=== PATIENT | female | born 1950 | race Caucasian/White ===

== ENCOUNTER 2021-05-28 13:25 | Inpatient (IN) ==
[2021-05-28] MEDS ORDERED: Lactated Ringers 1000 ml BAG 1,000 ML IV ONE ×2 (14:14→16:07)
[2021-05-28 15:13] LABS: ABS Lymphocytes 0.5 10^3/ul (1.0-4.8); ABS Monocytes 0.3 10^3/ul (0-0.8); ABS Neutrophils 5.9 10^3/ul (1.5-7.7); Hematocrit 28 % (35-47); Hemoglobin 9.1 g/dL (12.0-16.0); Mean Corpuscular HGB Conc 33 g/dL (31-36); Mean Corpuscular Hemoglobin 32 pg (27-31); Mean Corpuscular Volume 96 fL (80-97); Mean Platelet Volume 7.2 fL (7.4-10.4); Platelet Count 237 10^3/uL (150-450); Red Blood Count 2.89 10^6 /uL (3.70-4.87); Red Cell Distribution Width 18 % (10-15); White Blood Count 6.7 10^3/uL (3.5-10.8)
[2021-05-28 15:20] LABS: INR 1.22 (0.86-1.15)
[2021-05-28 15:41] LABS: Albumin 3.2 g/dL (3.2-5.2); Albumin/Globulin Ratio 1.2 (1-3); C Reactive Protein 44.72 mg/L (<8.01); Calcium 9.6 mg/dL (8.6-10.3); Globulin 2.7 g/dL (2-4); Magnesium 1.5 mg/dL (1.9-2.7); Potassium 3.1 mmol/L (3.5-5.0); Total Bilirubin 0.7 mg/dL (0.2-1.0); Total Protein 5.9 g/dL (6.4-8.9); eGFR CKD-EPI 78.5 (>60)
[2021-05-28] MEDS ORDERED: Magnesium Sulfate 2 gm BAG 2 GM/50 ML BAG IVPB ONE (15:48)
[2021-05-28] MEDS: KCL 20 MEQ/100 ML IVPREMIX 20 MEQ/100 ML BAG IV SCH ×2 (16:53→18:45)
[2021-05-28] MEDS ORDERED: Iohexol 300 (CONTRAST) 10 ML SDV IV ONE (20:03)
[2021-05-28 21:38] LABS: Urine Appearance Cloudy; Urine Bacteria 1+ (Absent); Urine Bilirubin Negative (Negative); Urine Blood Negative (Negative); Urine Color Yellow; Urine Glucose Negative (Negative); Urine Ketones Trace (Negative); Urine Nitrite Negative (Negative); Urine Protein Negative (Negative); Urine Red Blood Cell 2+(6-10/hpf) (Absent); Urine Specific Gravity 1.034 (1.002-1.030); Urine Squamous Epithelial Cell Present (Absent); Urine Urobilinogen Negative (Negative); Urine White Blood Cell Trace(0-5/hpf) (Absent)
[2021-05-28] MEDS ORDERED: Acetaminophen IV 1 GM/100ML 100 ML IV PRN (21:53)
[2021-05-28 22:12] LABS: Phosphorus 3.6 mg/dL (2.5-5.0)
[2021-05-28] MEDS: Pantoprazole VIAL 40 MG VIAL IV SCH (22:59)
[2021-05-28] MEDS: D5LR 20 MEQ KCL 1000 ml BAG 1,000 ML IV SCH (22:59)
[2021-05-28] MEDS: Enoxaparin 40 MG/0.4 ML SYR SUBCUT SCH (23:00)
[2021-05-29 05:52] LABS: ABS Lymphocytes 0.7 10^3/ul (1.0-4.8); ABS Monocytes 0.4 10^3/ul (0-0.8); ABS Neutrophils 4.7 10^3/ul (1.5-7.7); Eosinophil % 0.2 %; Hematocrit 25 % (35-47); Hemoglobin 8.3 g/dL (12.0-16.0); Lymphocyte % 11.3 %; Mean Corpuscular HGB Conc 33 g/dL (31-36); Mean Corpuscular Hemoglobin 32 pg (27-31); Mean Corpuscular Volume 98 fL (80-97); Mean Platelet Volume 6.8 fL (7.4-10.4); Platelet Count 232 10^3/uL (150-450); Red Blood Count 2.56 10^6 /uL (3.70-4.87); Red Cell Distribution Width 18 % (10-15); White Blood Count 5.7 10^3/uL (3.5-10.8)
[2021-05-29 06:21] LABS: Albumin 2.9 g/dL (3.2-5.2); Albumin/Globulin Ratio 1.1 (1-3); Calcium 8.9 mg/dL (8.6-10.3); Globulin 2.7 g/dL (2-4); Magnesium 1.7 mg/dL (1.9-2.7); Phosphorus 2.3 mg/dL (2.5-5.0); Potassium 3.7 mmol/L (3.5-5.0); Total Bilirubin 0.8 mg/dL (0.2-1.0); Total Protein 5.6 g/dL (6.4-8.9); eGFR CKD-EPI 94.9 (>60)
[2021-05-29] MEDS: Pantoprazole VIAL 40 MG VIAL IV SCH ×2 (08:35→20:56)
[2021-05-29] MEDS: Diphenoxylat/Atrop 2.5-0.025mg TAB PO SCH ×3 (08:35→20:56)
[2021-05-29] MEDS: CMC: Lactase Enzyme (NF) 3,000 UNIT TAB PO SCH ×2 (12:26→19:19)
[2021-05-29] MEDS: D5LR 20 MEQ KCL 1000 ml BAG 1,000 ML IV SCH (12:26)
[2021-05-29 18:28] LABS: Calcium 8.9 mg/dL (8.6-10.3); Magnesium 1.4 mg/dL (1.9-2.7); Potassium 3.6 mmol/L (3.5-5.0); eGFR CKD-EPI 97.9 (>60)
[2021-05-29] MEDS: Enoxaparin 40 MG/0.4 ML SYR SUBCUT SCH (20:57)
[2021-05-29] MEDS ORDERED: Magnesium Sulf 4 GM/100 ML IV 4,000 MG/100 ML BAG IVPB ONE (22:01)
[2021-05-29] MEDS: Magnesium Sulfate 2 GM IV (Premix) IVPB SCH ×2 (22:35→23:37)
[2021-05-30] MEDS: D5LR 20 MEQ KCL 1000 ml BAG 1,000 ML IV SCH (02:00)
[2021-05-30 04:36] LABS: ABS Lymphocytes 0.5 10^3/ul (1.0-4.8); ABS Monocytes 0.3 10^3/ul (0-0.8); Eosinophil % 0.2 %; Hematocrit 25 % (35-47); Hemoglobin 8.2 g/dL (12.0-16.0); Lymphocyte % 7.3 %; Mean Corpuscular HGB Conc 33 g/dL (31-36); Mean Corpuscular Hemoglobin 32 pg (27-31); Mean Corpuscular Volume 97 fL (80-97); Mean Platelet Volume 6.9 fL (7.4-10.4); Platelet Count 225 10^3/uL (150-450); Red Blood Count 2.57 10^6 /uL (3.70-4.87); Red Cell Distribution Width 18 % (10-15); White Blood Count 6.8 10^3/uL (3.5-10.8)
[2021-05-30 05:03] LABS: Calcium 8.8 mg/dL (8.6-10.3); Magnesium 2.4 mg/dL (1.9-2.7); Potassium 3.5 mmol/L (3.5-5.0); eGFR CKD-EPI 96.7 (>60)
[2021-05-30] MEDS: Diphenoxylat/Atrop 2.5-0.025mg TAB PO SCH ×4 (08:15→20:28)
[2021-05-30] MEDS: Pantoprazole VIAL 40 MG VIAL IV SCH ×2 (08:15→20:19)
[2021-05-30] MEDS: CMC: Lactase Enzyme (NF) 3,000 UNIT TAB PO SCH (08:15)
[2021-05-30 10:06] LABS: Ferritin 731.4 ng/mL (11-307)
[2021-05-30] MEDS ORDERED: Alteplase (CATHFLO) 2 MG VIAL ONE (10:58)
[2021-05-30] MEDS: CMCS: Lactase Enzyme (NF) 3,000 UNIT TAB PO PRN (12:35)
[2021-05-30] MEDS ORDERED: TPN 24 HR with Dextrose 40% Water 500 ML, Amino Acid Infusion 10% 1,000 ML, Lipid Emuls... CENT\\PICC SCH (17:00)
[2021-05-30] MEDS: Enoxaparin 40 MG/0.4 ML SYR SUBCUT SCH (20:28)
[2021-05-31] MEDS: Diphenoxylat/Atrop 2.5-0.025mg TAB PO SCH ×4 (02:47→20:31)
[2021-05-31] MEDS ORDERED: Loperamide LIQ 2 MG/15 ML UDC PO ONE ×2 (04:00→04:03)
[2021-05-31 06:29] LABS: Albumin 2.7 g/dL (3.2-5.2); Albumin/Globulin Ratio 1.1 (1-3); Calcium 8.5 mg/dL (8.6-10.3); Globulin 2.5 g/dL (2-4); Magnesium 1.5 mg/dL (1.9-2.7); Phosphorus 1.8 mg/dL (2.5-5.0); Potassium 3.5 mmol/L (3.5-5.0); Total Bilirubin 0.5 mg/dL (0.2-1.0); Total Protein 5.2 g/dL (6.4-8.9); eGFR CKD-EPI 100.5 (>60)
[2021-05-31] MEDS ORDERED: Magnesium Sulf 4 GM/100 ML IV 4,000 MG/100 ML BAG IVPB ONE (08:23)
[2021-05-31] MEDS: CMCS: Lactase Enzyme (NF) 3,000 UNIT TAB PO PRN ×3 (08:25→18:34)
[2021-05-31] MEDS: Pantoprazole VIAL 40 MG VIAL IV SCH ×2 (08:31→20:30)
[2021-05-31] MEDS ORDERED: Potassium Phosphate IV 10 MMOLE in NS 0.9% 250 ml 250 ML IVPB ONE (09:00)
[2021-05-31] MEDS ORDERED: Iohexol 300 (CONTRAST) 10 ML SDV IV ONE (11:50)
[2021-05-31] MEDS: TPN 24 HR with Dextrose 40% Water 500 ML, Amino Acid Infusion 10% 1,000 ML, Lipid Emuls... CENT\\PICC SCH (16:12)
[2021-05-31] MEDS: Enoxaparin 40 MG/0.4 ML SYR SUBCUT SCH (20:30)
[2021-06-01 05:13] LABS: Albumin 2.7 g/dL (3.2-5.2); Albumin/Globulin Ratio 1.1 (1-3); Calcium 8.3 mg/dL (8.6-10.3); Globulin 2.5 g/dL (2-4); Magnesium 2.2 mg/dL (1.9-2.7); Phosphorus 2.3 mg/dL (2.5-5.0); Potassium 3.8 mmol/L (3.5-5.0); Total Bilirubin 0.6 mg/dL (0.2-1.0); Total Protein 5.2 g/dL (6.4-8.9); eGFR CKD-EPI 100.5 (>60)
[2021-06-01] MEDS: Diphenoxylat/Atrop 2.5-0.025mg TAB PO SCH ×3 (07:45→19:58)
[2021-06-01] MEDS: Pantoprazole VIAL 40 MG VIAL IV SCH ×2 (07:45→20:01)
[2021-06-01] MEDS: Ondansetron 4 mg VIAL 2 MG/ML 2 ml VIAL IV PRN ×2 (07:49→14:23)
[2021-06-01] MEDS: TPN 24 HR with Dextrose 40% Water 500 ML, Amino Acid Infusion 10% 1,000 ML, Lipid Emuls... CENT\\PICC SCH (17:11)
[2021-06-01] MEDS: Enoxaparin 40 MG/0.4 ML SYR SUBCUT SCH (20:07)
[2021-06-02 05:42] LABS: ALT 31 U/L (7-52); AST 39 U/L (13-39); Albumin 1.7 g/dL (3.2-5.2); Albumin/Globulin Ratio 1.1 (1-3); Alkaline Phosphatase 210 U/L (35-149); Blood Urea Nitrogen 29 mg/dL (6-24); CO2 Carbon Dioxide 19 mmol/L (22-32); Cholesterol 64 mg/dL; Globulin 1.6 g/dL (2-4); Glucose 82 mg/dL (70-100); Magnesium 1.3 mg/dL (1.9-2.7); Phosphorus 1.6 mg/dL (2.5-5.0); Potassium 2.8 mmol/L (3.5-5.0); Prealbumin 4 mg/dL (18-38); Sodium 144 mmol/L (135-145); Total Protein 3.3 g/dL (6.4-8.9); Triglycerides 41 mg/dL; eGFR CKD-EPI 114.8 (>60)
[2021-06-02 05:54] LABS: Anion Gap 3 mmol/L (2-11); Calcium 5.3 mg/dL (8.6-10.3); Chloride 122 mmol/L (101-111)
[2021-06-02] MEDS ORDERED: Calcium Gluconate 3 GM in NS 0.9% 250 ml 250 ML IV ONE (08:20)
[2021-06-02] MEDS: CMCS: Lactase Enzyme (NF) 3,000 UNIT TAB PO PRN ×2 (09:33→17:54)
[2021-06-02] MEDS: Diphenoxylat/Atrop 2.5-0.025mg TAB PO SCH ×3 (10:34→20:14)
[2021-06-02] MEDS: Pantoprazole VIAL 40 MG VIAL IV SCH ×2 (10:35→20:14)
[2021-06-02 11:43] LABS: Albumin 2.6 g/dL (3.2-5.2); Calcium 8.3 mg/dL (8.6-10.3); Globulin 2.6 g/dL (2-4); Magnesium 1.8 mg/dL (1.9-2.7); Phosphorus 2.4 mg/dL (2.5-5.0); Potassium 4.3 mmol/L (3.5-5.0); Total Bilirubin 0.5 mg/dL (0.2-1.0); Total Protein 5.2 g/dL (6.4-8.9); eGFR CKD-EPI 103.5 (>60)
[2021-06-02] MEDS ORDERED: TPN CENTRAL STANDARD BASE A CENT\\PICC SCH (17:00)
[2021-06-02] MEDS: Enoxaparin 40 MG/0.4 ML SYR SUBCUT SCH (20:14)
[2021-06-03 06:20] LABS: Magnesium 1.7 mg/dL (1.9-2.7)
[2021-06-03 06:26] LABS: Phosphorus 2.3 mg/dL (2.5-5.0); eGFR CKD-EPI 104.6 (>60)
[2021-06-03] MEDS ORDERED: Magnesium Sulfate 2 gm BAG 2 GM/50 ML BAG IVPB ONE (08:10)
[2021-06-03] MEDS: Pantoprazole VIAL 40 MG VIAL IV SCH ×2 (09:26→20:01)
[2021-06-03] MEDS: CMCS: Lactase Enzyme (NF) 3,000 UNIT TAB PO PRN ×2 (09:26→13:20)
[2021-06-03] MEDS: Diphenoxylat/Atrop 2.5-0.025mg TAB PO SCH ×3 (09:32→19:02)
[2021-06-03] MEDS: TPN 24 HR with Dextrose 40% Water 500 ML, Amino Acid Infusion 10% 1,000 ML, Lipid Emuls... TPN SCH (17:12)
[2021-06-03] MEDS: Enoxaparin 40 MG/0.4 ML SYR SUBCUT SCH (20:01)
[2021-06-04 06:16] LABS: Calcium 8.2 mg/dL (8.6-10.3); Magnesium 1.7 mg/dL (1.9-2.7); Phosphorus 2.5 mg/dL (2.5-5.0); Potassium 4.1 mmol/L (3.5-5.0); eGFR CKD-EPI 107.1 (>60)
[2021-06-04] MEDS: Pantoprazole VIAL 40 MG VIAL IV SCH ×2 (09:25→21:09)
[2021-06-04] MEDS: Diphenoxylat/Atrop 2.5-0.025mg TAB PO SCH ×3 (09:25→21:08)
[2021-06-04] MEDS: TPN 24 HR with Dextrose 40% Water 500 ML, Amino Acid Infusion 10% 1,000 ML, Lipid Emuls... TPN SCH (16:27)
[2021-06-04] MEDS: Enoxaparin 40 MG/0.4 ML SYR SUBCUT SCH (21:09)
[2021-06-05 05:34] LABS: Calcium 8.4 mg/dL (8.6-10.3); Magnesium 1.9 mg/dL (1.9-2.7); Potassium 4.3 mmol/L (3.5-5.0); eGFR CKD-EPI 104.1 (>60)
[2021-06-05] MEDS: Diphenoxylat/Atrop 2.5-0.025mg TAB PO SCH ×3 (07:41→21:53)
[2021-06-05] MEDS: Pantoprazole VIAL 40 MG VIAL IV SCH ×2 (07:41→21:49)
[2021-06-05] MEDS ORDERED: oxyCODONE 5 mg/5 ml ORAL.SOLN UDC PO PRN (11:43)
[2021-06-05] MEDS: oxyCODONE 5 mg/5 ml ORAL.SOLN UDC PO PRN ×3 (12:53→22:01)
[2021-06-05] MEDS: TPN 24 HR with Dextrose 40% Water 500 ML, Amino Acid Infusion 10% 1,000 ML, Lipid Emuls... TPN SCH (21:34)
[2021-06-05] MEDS: Ondansetron 4 mg VIAL 2 MG/ML 2 ml VIAL IV PRN (21:49)
[2021-06-05] MEDS: Enoxaparin 40 MG/0.4 ML SYR SUBCUT SCH (21:53)
[2021-06-06] MEDS: Morphine 4 MG/ML VIAL (1 ml) IV PRN ×4 (00:33→21:39)
[2021-06-06] MEDS: Ondansetron 4 mg VIAL 2 MG/ML 2 ml VIAL IV PRN ×2 (03:41→13:32)
[2021-06-06] MEDS: Calcium Carb (TUMS) 500 mg CHEW TAB PO PRN (03:45)
[2021-06-06 06:09] LABS: ABS Lymphocytes 0.3 10^3/ul (1.0-4.8); ABS Monocytes 0.9 10^3/ul (0-0.8); ABS Neutrophils 7.6 10^3/ul (1.5-7.7); Hematocrit 25 % (35-47); Lymphocyte % 3.9 %; Mean Corpuscular HGB Conc 33 g/dL (31-36); Mean Corpuscular Hemoglobin 33 pg (27-31); Mean Corpuscular Volume 101 fL (80-97); Platelet Count 275 10^3/uL (150-450); Red Blood Count 2.43 10^6 /uL (3.70-4.87); Red Cell Distribution Width 19 % (10-15); White Blood Count 8.8 10^3/uL (3.5-10.8)
[2021-06-06 06:35] LABS: Albumin 2.6 g/dL (3.2-5.2); Calcium 8.7 mg/dL (8.6-10.3); Globulin 2.7 g/dL (2-4); Magnesium 2.3 mg/dL (1.9-2.7); Phosphorus 4.2 mg/dL (2.5-5.0); Total Bilirubin 0.5 mg/dL (0.2-1.0); Total Protein 5.3 g/dL (6.4-8.9); eGFR CKD-EPI 79.7 (>60)
[2021-06-06 06:36] LABS: Potassium 5.2 mmol/L (3.5-5.0)
[2021-06-06] MEDS: Pantoprazole VIAL 40 MG VIAL IV SCH ×2 (09:10→21:40)
[2021-06-06] MEDS: Metoclopramide 5 MG/ML VIAL (10 mg) IV SLOW PU PRN ×2 (09:10→18:27)
[2021-06-06] MEDS: oxyCODONE 5 mg/5 ml ORAL.SOLN UDC PO PRN (10:05)
[2021-06-06] MEDS: Diphenoxylat/Atrop 2.5-0.025mg TAB PO SCH ×4 (10:05→21:41)
[2021-06-06] MEDS ORDERED: TPN CENTRAL STANDARD BASE A TPN SCH (17:00)
[2021-06-06] MEDS: Enoxaparin 40 MG/0.4 ML SYR SUBCUT SCH (21:40)
[2021-06-07] MEDS: Morphine 2 MG/ML SYRINGE IV PRN ×3 (06:11→22:45)
[2021-06-07 06:41] LABS: ABS Lymphocytes 0.5 10^3/ul (1.0-4.8); ABS Monocytes 0.8 10^3/ul (0-0.8); ABS Neutrophils 5.9 10^3/ul (1.5-7.7); Eosinophil % 0.1 %; Hematocrit 24 % (35-47); Hemoglobin 8.2 g/dL (12.0-16.0); Lymphocyte % 6.5 %; Mean Corpuscular HGB Conc 34 g/dL (31-36); Mean Corpuscular Hemoglobin 34 pg (27-31); Mean Corpuscular Volume 101 fL (80-97); Mean Platelet Volume 8.1 fL (7.4-10.4); Platelet Count 276 10^3/uL (150-450); Red Cell Distribution Width 19 % (10-15); White Blood Count 7.2 10^3/uL (3.5-10.8)
[2021-06-07 07:03] LABS: Albumin 2.7 g/dL (3.2-5.2); Albumin/Globulin Ratio 0.9 (1-3); Globulin 2.9 g/dL (2-4); Magnesium 2.6 mg/dL (1.9-2.7); Phosphorus 3.8 mg/dL (2.5-5.0); Potassium 4.6 mmol/L (3.5-5.0); Total Bilirubin 0.4 mg/dL (0.2-1.0); Total Protein 5.6 g/dL (6.4-8.9); eGFR CKD-EPI 62.5 (>60)
[2021-06-07] MEDS: Ondansetron 4 mg VIAL 2 MG/ML 2 ml VIAL IV PRN ×2 (08:43→16:55)
[2021-06-07] MEDS: oxyCODONE 5 mg/5 ml ORAL.SOLN UDC PO PRN ×2 (08:43→16:55)
[2021-06-07] MEDS: Pantoprazole VIAL 40 MG VIAL IV SCH ×2 (08:43→19:46)
[2021-06-07] MEDS: Diphenoxylat/Atrop 2.5-0.025mg TAB PO SCH ×3 (11:33→19:25)
[2021-06-07] MEDS ORDERED: TPN 24 HR with Dextrose 40% Water 500 ML, Amino Acid Infusion 10% 1,000 ML, Lipid Emuls... TPN SCH (17:00)
[2021-06-07] MEDS: Enoxaparin 40 MG/0.4 ML SYR SUBCUT SCH (19:46)
[2021-06-07] MEDS: Metoclopramide 5 MG/ML VIAL (10 mg) IV SLOW PU PRN (23:21)
[2021-06-08] MEDS: Morphine 2 MG/ML SYRINGE IV PRN ×3 (03:08→17:22)
[2021-06-08] MEDS: Ondansetron 4 mg VIAL 2 MG/ML 2 ml VIAL IV PRN ×3 (03:08→17:22)
[2021-06-08] MEDS: oxyCODONE 5 mg/5 ml ORAL.SOLN UDC PO PRN ×2 (06:27→19:59)
[2021-06-08 06:40] LABS: ABS Lymphocytes 0.3 10^3/ul (1.0-4.8); ABS Monocytes 0.5 10^3/ul (0-0.8); ABS Neutrophils 3.4 10^3/ul (1.5-7.7); Eosinophil % 0.3 %; Hematocrit 22 % (35-47); Hemoglobin 7.3 g/dL (12.0-16.0); Lymphocyte % 7.8 %; Mean Corpuscular HGB Conc 33 g/dL (31-36); Mean Corpuscular Hemoglobin 34 pg (27-31); Mean Corpuscular Volume 101 fL (80-97); Mean Platelet Volume 8.1 fL (7.4-10.4); Platelet Count 248 10^3/uL (150-450); Red Blood Count 2.16 10^6 /uL (3.70-4.87); Red Cell Distribution Width 19 % (10-15); White Blood Count 4.3 10^3/uL (3.5-10.8)
[2021-06-08 07:05] LABS: Magnesium 2.6 mg/dL (1.9-2.7); Phosphorus 3.4 mg/dL (2.5-5.0); Potassium 4.2 mmol/L (3.5-5.0); eGFR CKD-EPI 71.1 (>60)
[2021-06-08] MEDS: Diphenoxylat/Atrop 2.5-0.025mg TAB PO SCH ×3 (09:35→19:58)
[2021-06-08] MEDS: Pantoprazole VIAL 40 MG VIAL IV SCH ×2 (09:36→20:00)
[2021-06-08] MEDS ORDERED: TPN CENTRAL STANDARD BASE A CENT\\PICC SCH (17:00)
[2021-06-08] MEDS: Enoxaparin 30 MG/0.3 ML SYR SUBCUT SCH (20:00)
[2021-06-09] MEDS: Morphine 2 MG/ML SYRINGE IV PRN ×4 (01:24→22:07)
[2021-06-09] MEDS: Ondansetron 4 mg VIAL 2 MG/ML 2 ml VIAL IV PRN ×4 (01:24→22:08)
[2021-06-09] MEDS: oxyCODONE 5 mg/5 ml ORAL.SOLN UDC PO PRN (06:18)
[2021-06-09 06:53] LABS: ABS Lymphocytes 0.3 10^3/ul (1.0-4.8); ABS Monocytes 0.4 10^3/ul (0-0.8); ABS Neutrophils 3.9 10^3/ul (1.5-7.7); Eosinophil % 0.3 %; Hematocrit 22 % (35-47); Hemoglobin 7.1 g/dL (12.0-16.0); Lymphocyte % 6.5 %; Mean Corpuscular HGB Conc 33 g/dL (31-36); Mean Corpuscular Hemoglobin 33 pg (27-31); Mean Corpuscular Volume 100 fL (80-97); Mean Platelet Volume 7.8 fL (7.4-10.4); Platelet Count 232 10^3/uL (150-450); Red Blood Count 2.17 10^6 /uL (3.70-4.87); Red Cell Distribution Width 19 % (10-15); White Blood Count 4.7 10^3/uL (3.5-10.8)
[2021-06-09 07:39] LABS: Albumin 2.6 g/dL (3.2-5.2); Albumin/Globulin Ratio 0.9 (1-3); Globulin 2.9 g/dL (2-4); Magnesium 2.7 mg/dL (1.9-2.7); Phosphorus 3.3 mg/dL (2.5-5.0); Total Bilirubin 0.4 mg/dL (0.2-1.0); Total Protein 5.5 g/dL (6.4-8.9); eGFR CKD-EPI 64.9 (>60)
[2021-06-09] MEDS: Diphenoxylat/Atrop 2.5-0.025mg TAB PO SCH ×3 (09:01→22:12)
[2021-06-09] MEDS: Pantoprazole VIAL 40 MG VIAL IV SCH ×2 (09:03→22:08)
[2021-06-09] MEDS: TPN 24 HR with Dextrose 40% Water 500 ML, Amino Acid Infusion 10% 1,000 ML, Lipid Emuls... CENT\\PICC SCH (17:44)
[2021-06-09] MEDS ORDERED: CALCIUM GLUCONATE 1GM/50ML NS BAG IV ONE (21:00)
[2021-06-09] MEDS: Enoxaparin 30 MG/0.3 ML SYR SUBCUT SCH (22:12)
[2021-06-10] MEDS: Morphine 2 MG/ML SYRINGE IV PRN ×3 (05:11→13:57)
[2021-06-10] MEDS: Ondansetron 4 mg VIAL 2 MG/ML 2 ml VIAL IV PRN ×3 (05:11→21:46)
[2021-06-10 05:12] LABS: ABS Lymphocytes 0.3 10^3/ul (1.0-4.8); ABS Monocytes 0.4 10^3/ul (0-0.8); ABS Neutrophils 3.6 10^3/ul (1.5-7.7); Eosinophil % 0.4 %; Hematocrit 21 % (35-47); Mean Corpuscular HGB Conc 33 g/dL (31-36); Mean Corpuscular Hemoglobin 33 pg (27-31); Mean Corpuscular Volume 101 fL (80-97); Mean Platelet Volume 7.4 fL (7.4-10.4); Platelet Count 236 10^3/uL (150-450); Red Blood Count 2.09 10^6 /uL (3.70-4.87); Red Cell Distribution Width 19 % (10-15); White Blood Count 4.3 10^3/uL (3.5-10.8)
[2021-06-10] MEDS: Pantoprazole VIAL 40 MG VIAL IV SCH ×2 (09:11→21:46)
[2021-06-10] MEDS: Metoclopramide 5 MG/ML VIAL (10 mg) IV SLOW PU PRN ×2 (09:12→17:31)
[2021-06-10] MEDS: Diphenoxylat/Atrop 2.5-0.025mg TAB PO SCH ×3 (09:17→19:31)
[2021-06-10] MEDS: oxyCODONE 5 mg/5 ml ORAL.SOLN UDC PO PRN ×2 (17:30→21:44)
[2021-06-10] MEDS: TPN 24 HR with Dextrose 40% Water 500 ML, Amino Acid Infusion 10% 1,000 ML, Lipid Emuls... CENT\\PICC SCH (17:32)
[2021-06-10] MEDS: Enoxaparin 30 MG/0.3 ML SYR SUBCUT SCH (21:49)
[2021-06-11] MEDS: Morphine 2 MG/ML SYRINGE IV PRN ×5 (05:04→21:39)
[2021-06-11] MEDS: Metoclopramide 5 MG/ML VIAL (10 mg) IV SLOW PU PRN ×2 (05:05→16:00)
[2021-06-11 05:22] LABS: ABS Lymphocytes 0.4 10^3/ul (1.0-4.8); ABS Monocytes 0.4 10^3/ul (0-0.8); ABS Neutrophils 3.7 10^3/ul (1.5-7.7); Eosinophil % 0.5 %; Hematocrit 22 % (35-47); Hemoglobin 6.9 g/dL (12.0-16.0); Lymphocyte % 8.3 %; Mean Corpuscular HGB Conc 32 g/dL (31-36); Mean Corpuscular Hemoglobin 33 pg (27-31); Mean Corpuscular Volume 101 fL (80-97); Mean Platelet Volume 8.3 fL (7.4-10.4); Platelet Count 230 10^3/uL (150-450); Red Blood Count 2.13 10^6 /uL (3.70-4.87); Red Cell Distribution Width 19 % (10-15); White Blood Count 4.5 10^3/uL (3.5-10.8)
[2021-06-11 05:51] LABS: Magnesium 2.6 mg/dL (1.9-2.7)
[2021-06-11 09:01] LABS: Albumin 2.5 g/dL (3.2-5.2); Albumin/Globulin Ratio 0.9 (1-3); Calcium 8.6 mg/dL (8.6-10.3); Globulin 2.8 g/dL (2-4); Potassium 3.6 mmol/L (3.5-5.0); Total Bilirubin 0.5 mg/dL (0.2-1.0); Total Protein 5.3 g/dL (6.4-8.9); eGFR CKD-EPI 59.6 (>60)
[2021-06-11] MEDS: Diphenoxylat/Atrop 2.5-0.025mg TAB PO SCH ×3 (10:15→21:24)
[2021-06-11] MEDS: Pantoprazole VIAL 40 MG VIAL IV SCH ×2 (10:16→21:39)
[2021-06-11] MEDS: Ondansetron 4 mg VIAL 2 MG/ML 2 ml VIAL IV PRN ×2 (10:17→21:39)
[2021-06-11] MEDS: oxyCODONE 5 mg/5 ml ORAL.SOLN UDC PO PRN (17:11)
[2021-06-11] MEDS: TPN 24 HR with Dextrose 40% Water 500 ML, Amino Acid Infusion 10% 1,000 ML, Lipid Emuls... CENT\\PICC SCH ×2 (17:48→18:23)
[2021-06-11] MEDS: Enoxaparin 30 MG/0.3 ML SYR SUBCUT SCH (21:44)
[2021-06-12] MEDS: Morphine 2 MG/ML SYRINGE IV PRN ×4 (05:04→19:48)
[2021-06-12] MEDS: Metoclopramide 5 MG/ML VIAL (10 mg) IV SLOW PU PRN ×2 (05:04→18:20)
[2021-06-12 05:26] LABS: ABS Lymphocytes 0.4 10^3/ul (1.0-4.8); ABS Monocytes 0.5 10^3/ul (0-0.8); ABS Neutrophils 4.1 10^3/ul (1.5-7.7); Eosinophil % 0.4 %; Hematocrit 21 % (35-47); Hemoglobin 6.8 g/dL (12.0-16.0); Lymphocyte % 7.5 %; Mean Corpuscular HGB Conc 32 g/dL (31-36); Mean Corpuscular Hemoglobin 33 pg (27-31); Mean Corpuscular Volume 102 fL (80-97); Mean Platelet Volume 8.3 fL (7.4-10.4); Platelet Count 215 10^3/uL (150-450); Red Blood Count 2.09 10^6 /uL (3.70-4.87); Red Cell Distribution Width 19 % (10-15)
[2021-06-12 06:01] LABS: Albumin 2.4 g/dL (3.2-5.2); Albumin/Globulin Ratio 0.9 (1-3); Calcium 8.5 mg/dL (8.6-10.3); Calcium 8.6 mg/dL (8.6-10.3); Globulin 2.8 g/dL (2-4); Magnesium 2.8 mg/dL (1.9-2.7); Potassium 3.7 mmol/L (3.5-5.0); Total Bilirubin 0.6 mg/dL (0.2-1.0); Total Protein 5.2 g/dL (6.4-8.9); eGFR CKD-EPI 58.9 (>60)
[2021-06-12] MEDS: oxyCODONE 5 mg/5 ml ORAL.SOLN UDC PO PRN (09:07)
[2021-06-12] MEDS: Diphenoxylat/Atrop 2.5-0.025mg TAB PO SCH ×3 (09:38→19:53)
[2021-06-12] MEDS: Pantoprazole VIAL 40 MG VIAL IV SCH ×2 (09:39→19:53)
[2021-06-12] MEDS ORDERED: Lactated Ringers 1000 ml BAG 1,000 ML IV SCH (12:00)
[2021-06-12] MEDS: TPN 24 HR with Dextrose 40% Water 500 ML, Amino Acid Infusion 10% 1,000 ML, Lipid Emuls... CENT\\PICC SCH (16:23)
[2021-06-12] MEDS: Magic MouthWash1-BEN/MAAL/LIDO 180 ML BTL SWISH SPIT SCH ×2 (18:04→19:48)
[2021-06-12] MEDS: Ondansetron 4 mg VIAL 2 MG/ML 2 ml VIAL IV PRN (19:53)
[2021-06-12] MEDS: Enoxaparin 30 MG/0.3 ML SYR SUBCUT SCH (19:53)
[2021-06-13] MEDS: Metoclopramide 5 MG/ML VIAL (10 mg) IV SLOW PU PRN (00:58)
[2021-06-13] MEDS: Morphine 2 MG/ML SYRINGE IV PRN ×2 (00:58→20:24)
[2021-06-13 05:39] LABS: ABS Lymphocytes 0.4 10^3/ul (1.0-4.8); ABS Monocytes 0.5 10^3/ul (0-0.8); ABS Neutrophils 5.4 10^3/ul (1.5-7.7); Eosinophil % 0.6 %; Hematocrit 20 % (35-47); Hemoglobin 6.4 g/dL (12.0-16.0); Lymphocyte % 6.9 %; Mean Corpuscular HGB Conc 32 g/dL (31-36); Mean Corpuscular Hemoglobin 33 pg (27-31); Mean Corpuscular Volume 101 fL (80-97); Mean Platelet Volume 8.6 fL (7.4-10.4); Nucleated Red Blood Cells % 0.1; Platelet Count 211 10^3/uL (150-450); Red Blood Count 1.97 10^6 /uL (3.70-4.87); Red Cell Distribution Width 19 % (10-15); White Blood Count 6.4 10^3/uL (3.5-10.8)
[2021-06-13 05:47] LABS: Albumin 2.2 g/dL (3.2-5.2); Albumin/Globulin Ratio 0.8 (1-3); Calcium 8.5 mg/dL (8.6-10.3); Globulin 2.6 g/dL (2-4); Magnesium 2.7 mg/dL (1.9-2.7); Potassium 3.6 mmol/L (3.5-5.0); Total Bilirubin 0.9 mg/dL (0.2-1.0); Total Protein 4.8 g/dL (6.4-8.9); eGFR CKD-EPI 62.5 (>60)
[2021-06-13] MEDS: Diphenoxylat/Atrop 2.5-0.025mg TAB PO SCH ×3 (11:32→20:25)
[2021-06-13] MEDS: Magic MouthWash1-BEN/MAAL/LIDO 180 ML BTL SWISH SPIT SCH ×4 (11:41→20:25)
[2021-06-13] MEDS: Pantoprazole VIAL 40 MG VIAL IV SCH ×2 (15:21→20:26)
[2021-06-13] MEDS ORDERED: TPN 24 HR with Dextrose 40% Water 500 ML, Amino Acid Infusion 10% 1,000 ML, Lipid Emuls... CENT\\PICC SCH (17:00)
[2021-06-13] MEDS: Enoxaparin 30 MG/0.3 ML SYR SUBCUT SCH (20:25)
[2021-06-13] MEDS: Ondansetron 4 mg VIAL 2 MG/ML 2 ml VIAL IV PRN (20:26)
[2021-06-14] MEDS: Morphine 2 MG/ML SYRINGE IV PRN ×6 (03:45→16:34)
[2021-06-14] MEDS: Ondansetron 4 mg VIAL 2 MG/ML 2 ml VIAL IV PRN ×3 (03:46→20:30)
[2021-06-14] MEDS: Diphenoxylat/Atrop 2.5-0.025mg TAB PO SCH ×3 (09:36→20:40)
[2021-06-14] MEDS: Magic MouthWash1-BEN/MAAL/LIDO 180 ML BTL SWISH SPIT SCH ×4 (09:38→21:13)
[2021-06-14] MEDS: Pantoprazole VIAL 40 MG VIAL IV SCH ×2 (09:38→20:36)
[2021-06-14 10:45] LABS: ABS Lymphocytes 0.4 10^3/ul (1.0-4.8); ABS Monocytes 0.6 10^3/ul (0-0.8); ABS Neutrophils 5.9 10^3/ul (1.5-7.7); Eosinophil % 0.2 %; Hematocrit 25 % (35-47); Hemoglobin 8.1 g/dL (12.0-16.0); Lymphocyte % 5.3 %; Mean Corpuscular HGB Conc 33 g/dL (31-36); Mean Corpuscular Hemoglobin 32 pg (27-31); Mean Corpuscular Volume 97 fL (80-97); Mean Platelet Volume 8.5 fL (7.4-10.4); Platelet Count 213 10^3/uL (150-450); Red Blood Count 2.54 10^6 /uL (3.70-4.87); Red Cell Distribution Width 22 % (10-15); White Blood Count 6.8 10^3/uL (3.5-10.8)
[2021-06-14 11:16] LABS: Albumin 2.4 g/dL (3.2-5.2); Calcium 8.9 mg/dL (8.6-10.3); Magnesium 2.6 mg/dL (1.9-2.7); Potassium 3.6 mmol/L (3.5-5.0); Total Bilirubin 1.3 mg/dL (0.2-1.0)
[2021-06-14 11:22] LABS: Albumin/Globulin Ratio 0.7 (1-3); Globulin 3.3 g/dL (2-4); Phosphorus 2.8 mg/dL (2.5-5.0); Total Protein 5.7 g/dL (6.4-8.9); eGFR CKD-EPI 68.3 (>60)
[2021-06-14] MEDS: Morphine ORAL CONCENTRATE 5 MG/0.25 ML ORAL.SYRIN SL PRN ×3 (18:19→23:11)
[2021-06-14] MEDS: Enoxaparin 30 MG/0.3 ML SYR SUBCUT SCH (20:39)
[2021-06-14] MEDS: Metoclopramide 5 MG/ML VIAL (10 mg) IV SLOW PU PRN (21:13)
[2021-06-15] MEDS: Morphine ORAL CONCENTRATE 5 MG/0.25 ML ORAL.SYRIN SL PRN ×5 (01:29→19:26)
[2021-06-15] MEDS: Ondansetron 4 mg VIAL 2 MG/ML 2 ml VIAL IV PRN (03:46)
[2021-06-15 05:36] LABS: ABS Lymphocytes 0.6 10^3/ul (1.0-4.8); ABS Monocytes 0.7 10^3/ul (0-0.8); ABS Neutrophils 8.1 10^3/ul (1.5-7.7); Eosinophil % 0.1 %; Hematocrit 25 % (35-47); Hemoglobin 8.2 g/dL (12.0-16.0); Lymphocyte % 5.9 %; Mean Corpuscular HGB Conc 33 g/dL (31-36); Mean Corpuscular Hemoglobin 32 pg (27-31); Mean Corpuscular Volume 98 fL (80-97); Mean Platelet Volume 9.1 fL (7.4-10.4); Platelet Count 210 10^3/uL (150-450); Red Blood Count 2.53 10^6 /uL (3.70-4.87); Red Cell Distribution Width 22 % (10-15); White Blood Count 9.4 10^3/uL (3.5-10.8)
[2021-06-15 05:56] LABS: Albumin 2.3 g/dL (3.2-5.2); Albumin/Globulin Ratio 0.7 (1-3); Globulin 3.1 g/dL (2-4); Total Protein 5.4 g/dL (6.4-8.9); eGFR CKD-EPI 56.2 (>60)
[2021-06-15] MEDS: Metoclopramide 5 MG/ML VIAL (10 mg) IV SLOW PU PRN (07:05)
[2021-06-15] MEDS: Pantoprazole VIAL 40 MG VIAL IV SCH ×2 (09:11→21:51)
[2021-06-15] MEDS: Diphenoxylat/Atrop 2.5-0.025mg TAB PO SCH ×3 (12:41→21:49)
[2021-06-15] MEDS: Magic MouthWash1-BEN/MAAL/LIDO 180 ML BTL SWISH SPIT SCH ×4 (12:41→21:51)
[2021-06-15] MEDS: Enoxaparin 30 MG/0.3 ML SYR SUBCUT SCH (21:50)
[2021-06-16] MEDS: Ondansetron 4 mg VIAL 2 MG/ML 2 ml VIAL IV PRN ×3 (03:37→20:14)
[2021-06-16] MEDS: Morphine ORAL CONCENTRATE 5 MG/0.25 ML ORAL.SYRIN SL PRN ×6 (03:37→23:22)
[2021-06-16] MEDS: Metoclopramide 5 MG/ML VIAL (10 mg) IV SLOW PU PRN ×2 (08:40→23:21)
[2021-06-16] MEDS: Magic MouthWash1-BEN/MAAL/LIDO 180 ML BTL SWISH SPIT SCH ×4 (08:40→19:44)
[2021-06-16] MEDS: Pantoprazole VIAL 40 MG VIAL IV SCH ×2 (08:40→20:14)
[2021-06-16] MEDS: Diphenoxylat/Atrop 2.5-0.025mg TAB PO SCH ×3 (08:42→20:07)
[2021-06-16] MEDS: Calcium Carb (TUMS) 500 mg CHEW TAB PO PRN (19:44)
[2021-06-17] MEDS: Morphine ORAL CONCENTRATE 5 MG/0.25 ML ORAL.SYRIN SL PRN ×6 (03:10→20:49)
[2021-06-17] MEDS: Ondansetron 4 mg VIAL 2 MG/ML 2 ml VIAL IV PRN ×3 (03:10→18:34)
[2021-06-17] MEDS: Magic MouthWash1-BEN/MAAL/LIDO 180 ML BTL SWISH SPIT SCH ×4 (07:45→20:50)
[2021-06-17] MEDS: Metoclopramide 5 MG/ML VIAL (10 mg) IV SLOW PU PRN ×2 (08:10→16:43)
[2021-06-17] MEDS: Diphenoxylat/Atrop 2.5-0.025mg TAB PO SCH ×3 (08:11→20:42)
[2021-06-17] MEDS: Pantoprazole VIAL 40 MG VIAL IV SCH (20:50)
[2021-06-18] MEDS: Ondansetron 4 mg VIAL 2 MG/ML 2 ml VIAL IV PRN (03:45)
[2021-06-18] MEDS: Morphine ORAL CONCENTRATE 5 MG/0.25 ML ORAL.SYRIN SL PRN ×5 (03:45→19:47)
[2021-06-18] MEDS: Metoclopramide 5 MG/ML VIAL (10 mg) IV SLOW PU PRN (09:06)
[2021-06-18] MEDS: Magic MouthWash1-BEN/MAAL/LIDO 180 ML BTL SWISH SPIT SCH ×4 (09:10→19:47)
[2021-06-18] MEDS: Diphenoxylat/Atrop 2.5-0.025mg TAB PO SCH ×3 (09:10→22:46)
[2021-06-18] MEDS: Pantoprazole VIAL 40 MG VIAL IV SCH (19:47)
[2021-06-19] MEDS: Morphine ORAL CONCENTRATE 5 MG/0.25 ML ORAL.SYRIN SL PRN ×5 (01:39→16:01)
[2021-06-19] MEDS: Metoclopramide 5 MG/ML VIAL (10 mg) IV SLOW PU PRN ×2 (08:33→20:59)
[2021-06-19] MEDS: Diphenoxylat/Atrop 2.5-0.025mg TAB PO SCH ×3 (08:33→21:00)
[2021-06-19] MEDS: Magic MouthWash1-BEN/MAAL/LIDO 180 ML BTL SWISH SPIT SCH ×4 (08:33→21:00)
[2021-06-19] MEDS: Saliva Substitute (NF) 1 SPRAY BTL MT PRN ×2 (08:34→16:05)
[2021-06-19 09:33] VITALS: BP 87/55
[2021-06-19] MEDS ORDERED: Morphine ORAL.SOLN 10 mg 2 mg/ml UDC 5 ml (10 mg) PO SCH (13:00)
[2021-06-19] MEDS: Morphine ORAL CONCENTRATE 5 MG/0.25 ML ORAL.SYRIN SL SCH ×2 (13:21→20:57)
[2021-06-19] MEDS: Ondansetron 4 mg VIAL 2 MG/ML 2 ml VIAL IV PRN (16:01)
[2021-06-19] MEDS: Pantoprazole VIAL 40 MG VIAL IV SCH (20:59)
[2021-06-20] MEDS: Morphine ORAL CONCENTRATE 5 MG/0.25 ML ORAL.SYRIN SL SCH ×4 (01:55→18:21)
[2021-06-20] MEDS: Ondansetron 4 mg VIAL 2 MG/ML 2 ml VIAL IV PRN ×2 (02:05→09:15)
[2021-06-20] MEDS: Morphine ORAL CONCENTRATE 5 MG/0.25 ML ORAL.SYRIN SL PRN (05:29)
[2021-06-20] MEDS: Metoclopramide 5 MG/ML VIAL (10 mg) IV SLOW PU PRN (07:44)
[2021-06-20] MEDS: Diphenoxylat/Atrop 2.5-0.025mg TAB PO SCH ×3 (07:59→23:34)
[2021-06-20] MEDS: Magic MouthWash1-BEN/MAAL/LIDO 180 ML BTL SWISH SPIT SCH ×4 (09:12→23:34)
[2021-06-20] MEDS: Saliva Substitute (NF) 1 SPRAY BTL MT PRN (09:15)
[2021-06-20] MEDS ORDERED: Ondansetron ODT 4 mg TAB 4 MG TAB SL PRN (10:50)
[2021-06-20 15:50] LABS: Rapid COVID-19 Molecular Undetected (Undetected)
[2021-06-21] MEDS: Morphine ORAL CONCENTRATE 5 MG/0.25 ML ORAL.SYRIN SL SCH ×3 (01:08→12:06)
[2021-06-21] MEDS: Diphenoxylat/Atrop 2.5-0.025mg TAB PO SCH (07:43)
[2021-06-21] MEDS: Magic MouthWash1-BEN/MAAL/LIDO 180 ML BTL SWISH SPIT SCH (07:49)
[2021-06-21] MEDS ORDERED: Scopolamine 1 mg/72hr PATCH TRANSDERM SCH (09:00)
== END 2021-06-21 12:19 | disposition hospice, inpatient (51) | DRG 640 ==
LOC: ED 13:25 → EDHOLD 21:53 → SUATTDRO 21:53 → MED 05-29 02:16
PROVIDERS: ADMIT Hospitalist; ATTEND Internal Medicine